=== PATIENT | female | born 1960 | race Caucasian/White ===

== ENCOUNTER 2018-08-23 13:03 | Emergency (ER) | payer OTHER ==
[2018-08-23] MEDS ORDERED: PERCOCET 5MG/325MG TAB PO (13:30)
[2018-08-23] MEDS: MORPHINE 4 MG/ML 1ML VIAL/SYRINGE (J2270) IM (13:35)
[2018-08-23] MEDS: PERCOCET 5MG/325MG TAB PO (14:36)
[2018-08-23] MEDS: PROMETHAZINE 25 MG TAB PO (14:36)
== END 2018-08-23 15:58 | disposition home or self-care (01) ==
LOC: M ED 13:03
DX: S42.251A Displaced fracture of greater tuberosity of right humerus, initial encounter for closed fracture (principal); S42.301A Unspecified fracture of shaft of humerus, right arm, initial encounter for closed fracture; W01.0XXA Fall on same level from slipping, tripping and stumbling without subsequent striking against object, initial encounter; Y92.830 Public park as the place of occurrence of the external cause; Y93.01 Activity, walking, marching and hiking; Y99.8 Other external cause status; F41.9 Anxiety disorder, unspecified; Z79.899 Other long term (current) drug therapy
CPT/HCPCS: J2270